=== PATIENT | female | born 1950 | race Caucasian/White ===

== ENCOUNTER → 2018-08-11 | Outpatient (CLI) | payer MEDICARE ==
--- NOTE | 2018-08-11 11:29 | US ---
EXAMINATION TYPE: US venous doppler duplex LE RT DATE OF EXAM: 08/11/2018 11:10 AM COMPARISON: NONE CLINICAL HISTORY: M25.561 Pain in Right Knee, I80.9 Phlebitis and th. SIDE PERFORMED: Right TECHNIQUE: The lower extremity deep venous system is examined utilizing real time linear array sonog mireya with graded compression, doppler sonography and color-flow sonography. VESSELS IMAGED: External Iliac Vein (EIV) Common Femoral Vein Deep Femoral Vein Greater Saphenous Vein * Femoral Vein Popliteal Vein Small Saphenous Vein * Proximal Calf Veins (* superficial vessels) Complex fluid collection right pop fossa measures 5.1 x 1.1 x 3.2 cm. Right Leg: Negative for DVT IMPRESSION: 1. No evidence for DVT at this time. 2. Quan's cyst.
== END | disposition home or self-care (01) ==
LOC: RADUSWWP 10:44
PROVIDERS: ATTEND Orthopaedic Surgery
DX: M71.21 Synovial cyst of popliteal space [Baker], right knee (principal)

== ENCOUNTER 2018-10-19 12:07 | Day surgery (SDC) | payer MEDICARE ==
[2018-10-14 14:10] VITALS: BMI 31.2
[~2018-10-19 12:07] MED LIST: DEXAMETHASONE SOD PHOSPHATE 10 MG/ML 1 ML VIAL IV ONE; HYDROmorphone 0.5 MG/0.5 ML SYRINGE IVP PRN; LACTATED RINGERS 1,000 ML IV SCH; MORPHINE SULFATE 2 MG/ML SYRINGE IV PRN; ONDANSETRON 4 MG/2 ML VIAL IVP ONE; ONDANSETRON 4 MG/2 ML VIAL IVP PRN; ceFAZolin IN SWFI 2 GM/20 ML SYRINGE IVP ONE
[2018-10-19 12:26] VITALS: RESP 16
[2018-10-19] MEDS ORDERED: fentaNYL (PF) 50 MCG/ML 2 ML AMP ONE (13:31)
[2018-10-19] MEDS ORDERED: LIDOCAINE 1% INJ 10MG/ML (20 ML MDV) ONE (13:31)
[2018-10-19] MEDS ORDERED: SUCCINYLCHOLINE CHLORIDE 100 MG/5 ML SYR IV ONE (13:31)
[2018-10-19] MEDS ORDERED: MIDAZOLAM 2 MG/2 ML VIAL ONE (13:31)
[2018-10-19] MEDS ORDERED: PROPOFOL 10 MG/ML 20 ML VIAL IV ONE (13:31)
[2018-10-19] MEDS ORDERED: ePHEDrine SULFATE/0.9% NACL/PF 50 MG/5 ML SYRINGE IV ONE (13:31)
[2018-10-19] MEDS ORDERED: ROPIVACAINE 5MG/ML 20ML VIAL MISCELLANE ONE ×2 (13:50→14:10)
--- NOTE | 2018-10-19 14:24 | P.OP ---
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 Anesthesia: MAC Surgeon: Arvin Rodriguez Leases And Land Supervisor #1: Fatoumata Flor Estimated Blood Loss (ml): 5 Pathology: none sent Condition: stable Disposition: PACU Indications for Procedure: This is a 68-year-old female that presented to my office with pain in the right knee. MRI demonstrated a torn medial meniscus and after discussing the surgical and nonsurgical treatment options with her at length, she was to proceed with arthroscopic debridement of her knee, and informed consent was obtained. Operative Findings: The operative findings are consistent with a torn medial meniscus, as well as grade 2-3 chondral malacia the mediofemoral compartment, grade 2 chondral malaia patello femoral compartment, and synovitis. Description of Procedure: Patient was seen and evaluated in the preoperative area, the operative site was marked with a skin marker. The patient was then brought to the operating room and given 1 g of Ancef intravenously. A general anesthetic was administered by the anesthesia department. Tourniquet was placed on the right upper thigh and the right lower extremity was then prepped and draped in usual sterile fashion. A universal timeout was then performed confirming the patient's name, surgical site, ALLERGIES, and consent. The limb was then exsanguinated and tourniquet insufflated to 250 mmHg. Standard inferior medial and inferior lateral portals were established in the knee. The trochar was inserted in the inferolateral portal. Examination began at the patellofemoral joint. There is noted to be grade 2 chondral malacia the patellofemoral compartment and a moderate amount of synovitis. Next the medial compartment was visualized. There was a tear of the posterior horn of the medial meniscus. There was grade 2-3 chondral malacia the mediofemoral compartment and synovitis. The notch area was then visualized and ACL was intact. The Lateral compartment was then visualized and the lateral meniscus was found to be intact, there was no evidence of chondromalacia, but a mild amount of synovitis. Next, using an arthroscopic shaver and a biter, partial medial meniscectomy was performed stable margins. Approximately 30% of meniscus was excised. A partial synovectomy is performed the medial femoral, lateral femoral, patellofemoral compartments. Chondroplasty was also performed of the medial femoral and patellofemoral compartments of the knee. Knee was then copiously irrigated, instruments removed, incisions were closed with 4-0 nylon. 30 mL of quarter percent plain Marcaine were injected sterilely into the surgical area. A sterile dressing was then applied, and the tourniquet was released. Patient was then transferred to recovery room in stable condition.
[2018-10-19 14:32] VITALS: TEMP 96.8
[2018-10-19 15:49] VITALS: BP 128/67; PULSE 78
== END 2018-10-19 16:02 | disposition home or self-care (01) ==
LOC: OR 12:07
PROVIDERS: ATTEND Orthopaedic Surgery
DX: S83.241A Other tear of medial meniscus, current injury, right knee, initial encounter (principal); X58.XXXA Exposure to other specified factors, initial encounter; M22.41 Chondromalacia patellae, right knee; M65.9 Synovitis and tenosynovitis, unspecified; I44.7 Left bundle-branch block, unspecified; F17.210 Nicotine dependence, cigarettes, uncomplicated; F39 Unspecified mood [affective] disorder; I10 Essential (primary) hypertension; E03.9 Hypothyroidism, unspecified; Z79.890 Hormone replacement therapy; Z79.899 Other long term (current) drug therapy; Z79.82 Long term (current) use of aspirin; Z88.0 Allergy status to penicillin
CPT/HCPCS: 29881; J2250; J1100; J2405; J2001; J3010; J0330; J2704; J0690; J2795